=== PATIENT | female | born 1930 | race Caucasian/White ===

== ENCOUNTER 2016-10-14 13:57 | Observation (INO) | payer OTHER ==
--- NOTE | 2016-10-14 14:45 | CPEKG ---
Heart Rate: 64 RR Interval: 938 P-R Interval: 188 QRSD Interval: 122 QT Interval: 432 QTC Interval: 446 P [place]: 62 QRS [place]: -6 T Wave [place]: 19 EKG Severity - ABNORMAL ECG - EKG Impression: SINUS RHYTHM EKG Impression: VENTRICULAR PREMATURE COMPLEX EKG Impression: NONSPECIFIC INTRAVENTRICULAR CONDUCTION DELAY Electronically Signed By: Tony Guzman 15-Oct-2016 23:49:17
--- NOTE | 2016-10-14 15:05 | EDPHY ---
H & P Stated Complaint: 1-2b min episode of aphasia/garbled speech at noon/now resolved Time Seen by Provider: 10/14/16 14:13 HPI/ROS: Chief Complaint: Difficulty with speech and confusion HPI: 86-year-old woman with no significant past medical history presenting after having an episode where she had difficulty word finding and was confused. This started about noon while she was doing yoga in her home. She was with hot health and safety instructor at that time her noted that she was having difficulty word finding and generally feeling confused. She did not have any vertiginous symptoms. Symptoms lasted for a few minutes since resolved. Right now she feels a bit better but "I do not feel like me". Has had milder similar symptoms in the past couple of months. She has had a recent URI the last couple of weeks for which she took a Z-Jeffery. She was seen by her primary care physician last week and had a normal blood test at that time. No falls. No headache. No nausea or vomiting. No chest pain shortness of breath. ROS: 10 point Review of Systems is negative except as noted in the HPI. PMH: Hypothyroidism Medications: Synthroid, oxybutynin, OxyContin Allergies: No known drug allergies Social History: No smoking, rare alcohol, no recreational drug use Family History: non-contributory Physical Exam: Gen: Awake, Alert, No Distress HEENT: Nose: no rhinorrhea Eyes: PERRLA, EOMI Mouth: Moist mucosa Neck: Supple, no JVD Chest: nontender, lungs clear to auscultation Heart: S1, S2 normal, no murmur Abd: Soft, non-tender, no guarding Back: no CVA tenderness, no midline tenderness Ext: no edema, non-tender Skin: no rash Neuro: See NIH stroke exam - Personal History Current Tetanus/Diphtheria Vaccine: Yes - Medical/Surgical History Hx Asthma: No Hx Chronic Respiratory Disease: No Hx Diabetes: No Hx Cardiac Disease: No Hx Renal Disease: No Hx Cirrhosis: No Hx Alcoholism: No Hx HIV/AIDS: No Hx Splenectomy or Spleen Trauma: No Other PMH: denies - Social History Smoking Status: Never smoked Constitutional: Initial Vital Signs Temperature (C) 36.5 C 10/14/16 14:07 Heart Rate 74 10/14/16 14:07 Respiratory Rate 20 10/14/16 14:07 Blood Pressure 165/80 H 04/18/17 14:07 O2 Sat (%) 94 10/14/16 14:07 O2 Delivery Mode Room Air Allergies/Adverse Reactions: No Known Allergies Allergy (Verified 10/14/16 14:06) Home Medications: Medication Instructions Recorded Aspirin [Aspirin 81mg (*)] 81 mg PO DAILY 04/29/12 FLUoxetine HCL [Fluoxetine HCl] 40 mg PO DAILY 04/29/12 Levothyroxine [Synthroid 88 mcg 88 mcg PO DAILY06 04/29/12 (*)] oxyCODONE CR [Oxycontin] 10 mg PO Q6 04/29/12 Oxybutynin 10/14/16 Medical Decision Making - Diagnostics Imaging Results: Imaging Impressions Head CT 10/14/16 14:35 Impression: 1. No acute intracranial findings. If symptoms persist and clinical suspicion warrants, consider MRI. 2. Diffuse cerebral atrophy with periventricular and subcortical low attenuation consistent with chronic microvascular ischemic gliosis. Findings discussed with Rock Mendoza MD, 10/14/2016, at 1512 hours. Imaging: Discussed imaging studies w/ yardage caller Radiologist ED Course/Re-evaluation: Patient remains unchanged. I have discussed with Dr. Islas, hospitalist. He will admit to his service for further evaluation. - Data Points Laboratory Results: Laboratory Results 10/14/16 15:15 10/14/16 15:15 10/14/16 10/14/16 15:15 15:15 WBC 6.37 10^3/uL 10^3/uL (3.80-9.50) RBC 4.60 10^6/uL 10^6/uL (4.18-5.33) Hgb 14.0 g/dL g/dL (12.6-16.3) Hct 42.0 % % (38.0-47.0) MCV 91.3 fL fL (81.5-99.8) MCH 30.4 pg pg (27.9-34.1) MCHC 33.3 g/dL g/dL (32.4-36.7) RDW 14.1 % % (11.5-15.2) Plt Count 250 10^3/uL 10^3/uL (150-400) MPV 10.4 fL fL (8.7-11.7) Neut % (Auto) 61.3 % % (39.3-74.2) Lymph % (Auto) 25.0 % % (15.0-45.0) [place] % (Auto) 11.5 % % (4.5-13.0) Eos % (Auto) 1.4 % % (0.6-7.6) Baso % (Auto) 0.5 % % (0.3-1.7) Nucleat RBC Rel Count 0.0 % % (0.0-0.2) Absolute Neuts (auto) 3.91 10^3/uL 10^3/uL (1.70-6.50) Absolute Lymphs (auto) 1.59 10^3/uL 10^3/uL (1.00-3.00) Absolute Monos (auto) 0.73 10^3/uL 10^3/uL (0.30-0.80) Absolute Eos (auto) 0.09 10^3/uL 10^3/uL (0.03-0.40) Absolute Basos (auto) 0.03 10^3/uL 10^3/uL (0.02-0.10) Absolute Nucleated RBC 0.00 10^3/uL 10^3/uL (0-0.01) Immature Gran % 0.3 % % (0.0-1.1) Immature Gran # 0.02 10^3/uL 10^3/uL (0.00-0.10) Sodium 138 mEq/L mEq/L (134-144) Potassium 4.2 mEq/L mEq/L (3.5-5.2) Chloride 104 mEq/L mEq/L (97-110) Carbon Dioxide 25 mEq/l mEq/l (22-31) Anion Gap 9 mEq/L mEq/L (8-16) BUN 13 mg/dL mg/dL (7-23) Creatinine 0.6 mg/dL mg/dL (0.6-1.0) Estimated GFR > 60 Glucose 91 mg/dL mg/dL (70-100) Calcium 9.6 mg/dL mg/dL (8.5-10.4) Troponin I Pending Departure - Departure Disposition: [facility] Acute Clinical Impression: Transient cerebral ischemia Condition: Fair Referrals: BRITTNEY FABIAN [Other] - As per Instructions NIH Stroke Scale Date of Exam: 10/14/16 Time of Exam: 14:00 Level of Consciousness: Alert LOC Questions: Answers Both LOC Commands: Performs Both Correctly Best Gaze: Normal Visual: No Visual Loss Facial Palsy: Normal Motor Arm-Left: No Drift Motor Arm-Right: No Drift Motor Leg-Left: No Drift Motor Leg-Right: No Drift Limb Ataxis: Absent Sensory: Normal Best Language: No Aphasia Dysarthria: Normal Extinction and Inattention (Neglect): No Abnormality NIH Scale Score: 0
[2016-10-14 15:29] LABS: % IMMATURE GRANULYOCYTES 0.3 % (0.0-1.1); ABSOLUTE IMMATURE GRANULOCYTES 0.02 10^3/uL (0.00-0.10); ADD DIFF? NO; ADD MORPH? NO; ADD SCAN? NO; ATYPICAL LYMPHOCYTE FLAG 10 (0-99); FRAGMENT RBC FLAG 0 (0-99); LEFT SHIFT FLG 0 (0-99); LIPEMIA HEMOLYSIS FLAG 80 (0-99); MEAN CELL HEMOGLOBIN 30.4 pg (27.9-34.1); MEAN CELL HEMOGLOBIN CONCENTR. 33.3 g/dL (32.4-36.7); MEAN CELL VOLUME 91.3 fL (81.5-99.8); MEAN PLATELET VOLUME 10.4 fL (8.7-11.7); PLATELET CLUMPS FLAG 0 (0-99); PLATELET COUNT 250 10^3/uL (150-400); RED CELL DISTRIBUTION WIDTH 14.1 % (11.5-15.2)
[2016-10-14 15:43] LABS: ANION GAP 9 mEq/L (8-16); CALCIUM 9.6 mg/dL (8.5-10.4); CARBON DIOXIDE 25 mEq/l (22-31); CHLORIDE 104 mEq/L (97-110); CREATININE 0.6 mg/dL (0.6-1.0); GLOMERULAR FILTRATION RATE > 60; GLUCOSE 91 mg/dL (70-100); POTASSIUM 4.2 mEq/L (3.5-5.2); SODIUM 138 mEq/L (134-144)
[2016-10-14 15:52] LABS: TROPONIN I < 0.012 ng/mL (0-0.034)
[2016-10-14 16:45] LABS: COLOR YELLOW; LEUKOCYTE ESTERASE,URINE 2+ (NEGATIVE); NITRITE,URINE NEGATIVE (NEGATIVE)
[2016-10-14 16:56] LABS: BACTERIA 4+ /hpf (NONE SEEN); MUCUS TRACE /lpf (NONE-1+); WBC,URINE 15-25 /hpf (0-3)
--- NOTE | 2016-10-14 18:25 | GHP ---
[f rep st] HISTORY AND PHYSICAL DATE OF ADMISSION: 10/14/2016 The patient is a pleasant 86-year-old female with a history of hypothyroidism and former hypertensio n who presents with word-finding difficulties. She was doing yoga at home with an instructor when s he had a hard time getting the words out. She does not describe dysarthria. She does not describe focal weakness. Her son, who is an EMT, showed up a little bit later but it might have been a coupl e hours later and did not notice any asymmetry in her face or difficulty with operator and truck driver strength. She no ticed that she was not listing during her yoga moves to one side versus the other. She now feels th at her speech is almost there but not quite. She is able to name objects and follow commands and re peat phrases. She denies a history of palpitations. She had previously been on blood pressure medi cine in [place] years ago. She denies history of hypercholesterolemia. She has not had heart fa ilure symptoms such as PND, orthopnea or lower extremity edema. She does not have anginal symptoms. She does take 5 mg of OxyContin b.i.d. as well as oxybutynin but it does not sound like there is m edication misuse of inability to take care of one's own medicines. She was recently treated for an upper respiratory infection with a Z-Jeffery. It sounds like her daught er has been visiting. It has been an emotionally trying time, but the patient seems pretty alert an d level headed when I am speaking with her. REVIEW OF SYSTEMS: A complete 10-point review of systems conducted and negative except as noted in the HPI. PAST MEDICAL HISTORY: 1. Chronic pain although her son describes that she is treated with opioids for sense of well-being . 2. Hypothyroidism. 3. Possible hypertension. 4. Urinary urgency. ALLERGIES: No known drug allergies. HOME MEDICATIONS: Aspirin, fluoxetine, levothyroxine, oxybutynin, oxycodone. SOCIAL HISTORY: No tobacco. No alcohol. FAMILY HISTORY: Son is healthy at the bedside. PHYSICAL EXAMINATION: VITAL SIGNS: Temp 36.5, blood pressure 165/80, pulse 74, breathing 20 times a minute, 94% on room air. GENERAL: No acute distress. HEENT: Sclerae anicteric. Oropharynx cintia ar. Mucous membranes are moist. NECK: Supple without lymphadenopathy or JVD. LUNGS: Clear to au scultation bilaterally. HEART: S1, S2 without murmurs. ABDOMEN: Soft, nontender, nondistended. LOWER EXTREMITIES: Without edema. Calves are nontender. SKIN: Without rash. NEUROLOGIC: Nonfoc al. The upper extremity and lower extremity strength and sensation are 5/5 bilaterally. She is abl e to name objects, follow commands and repeat a phrase without dysarthria or word-finding difficulti es. IMAGING: Head CT shows no acute intracranial findings, diffuse cerebral atrophy consist with chroni c microvascular ischemic gliosis. Her EKG interpreted by me shows sinus at 67 with normal axis and intervals. There are no ST or T-wave changes. There are nonspecific interventricular conduction de lay. There is no prior for comparison. I have discussed the case with Dr. Rock Mendoza. LABORATORY DATA: White count 6, hematocrit 42, platelets are 203,000. Sodium 138, potassium 4.2, c hloride 104, bicarb 25, BUN 13, creatinine 0.6, glucose 91, troponin less than 0.012. UA as mention ed. ASSESSMENT/PLAN: An 86-year-old female with likely transient ischemic attack. 1. Transient ischemic attack. This sounds like it was an expressive aphasia that was transient wit h those symptoms alone. Symptoms by my exam had fully cleared. She is not a candidate for lytics. We will perform the typical transient ischemic attack workup including an echocardiogram, ultrasoun ds, hemoglobin A1c and lipid panel. I do not think she needs an MRI if family is not interested in getting one. 2. Pyuria. The patient has a UA showing 15-25 white cells. She has no urinary symptoms. We will treat it. Also has 2+ epithelial cells consistent with contaminant. 3. Prophylaxis. Pharmacologic prophylaxis indicated if in the hospital longer than 24 hours. 4. Possible hypertension. She is hypertensive here. We will follow. We will not give any agents at this time. 5. Disposition: Observation status. /[id number]/MODL
[2016-10-14] MEDS ORDERED: NAPROXEN SODIUM 220 MG TAB PO PRN (18:40)
[2016-10-14] MEDS: OXYBUTYNIN 5 MG EXT REL TAB PO SCH (20:40)
[2016-10-14] MEDS: oxyCODONE IR 5 MG TAB PO SCH (20:40)
[2016-10-15 00:45] VITALS: RESP 16
[2016-10-15 05:05] LABS: CHOLESTEROL 167 mg/dL (140-220); CHOLESTEROL/HDL RATIO 2.69 RATIO (1.00-4.44); HIGH DENSITY LIPOPROTEIN 62 mg/dL (40-85); LDL/HDL RATIO 1.42 RATIO (1.00-3.22); LOW DENSITY LIPOPROTEIN 88 mg/dL (80-100); NON-HIGH DENSITY LIPOPROTEIN 105 mg/dL (90-129); TRIGLYCERIDE 85 mg/dL (35-135); VERY LOW DENSITY LIPOPROTEINS 17 mg/dL (8-25)
[2016-10-15] MEDS ORDERED: LEVOTHYROXINE 88 MCG TAB PO SCH (06:00)
[2016-10-15] MEDS ORDERED: NON-FORMULARY NEW DRUG (Oxybutynin Chloride [Ditropan Xl] 10 MG) PO SCH (09:00)
[2016-10-15] MEDS ORDERED: ASPIRIN 81 MG CHEWABLE TAB PO SCH (09:00)
[2016-10-15] MEDS ORDERED: Herbals/Supplements -Info Only PO SCH (09:00)
[2016-10-15] MEDS: OXYBUTYNIN 5 MG EXT REL TAB PO SCH (09:51)
[2016-10-15 09:53] LABS: HEMOGLOBIN A1C 5.5 % (4.0-6.0)
[2016-10-15] MEDS: oxyCODONE IR 5 MG TAB PO SCH (09:53)
--- NOTE | 2016-10-15 11:57 | HOSPPROG ---
Hospitalist Progress Note Assessment/Plan: Patient is an 86 yo female who presented to the ER with word finding difficulties. Today is my first encounter with the patient, chart reviewed. *likely TIA carotid ultrasound shows < 50 % stenosis CT of head shows no acute intracranial findings ECG shows sinus rhythm/reviewed cardiac monitor: sinus rhythm awaiting echo report on asa, would benefit from a statin/ patient and her son wish to discuss w her PCP *Pyuria no complaints *Urinary urgency on Oxybutynin *HTN; bp has been elevated, son and patient want to further discuss w PCP *Plan: Dr Unger with neurology to see/ will likely dc today Subjective: Glenna feels well/ no complaints. Objective: Vital Signs Temp Pulse Resp BP Pulse Ox 36.4 C 61 16 169/67 H 94 10/15/16 11:44 10/15/16 11:44 10/15/16 11:44 10/15/16 11:44 10/15/16 11:44 10/14/16 10/15/16 10/16/16 05:59 05:59 05:59 Intake Total 400 Balance 400 - Physical Exam Constitutional: no apparent distress, appears nourished, not in pain Eyes: PERRL Ears, Nose, Mouth, Throat: hearing normal Cardiovascular: regular rate and rhythym Respiratory: no respiratory distress Gastrointestinal: normoactive bowel sounds, soft, non-tender abdomen Skin: warm, normal color Musculoskeletal: full muscle strength Neurologic: AAOx3, CN II-XII Intact, No pronator drift, No facial droop Psychiatric: interacting appropriately, not anxious, not encephalopathic ICD10 Worksheet Patient Problems: Problems Problem Status Onset Transient cerebral ischemia Acute
--- NOTE | 2016-10-15 14:19 | ECHO ---
[id number] + + [address] : : [place] [address] : : [phone] + + Adult Echocardiographic Report + -----+ :Name: Zeb HODGE Date: 10/15/2016 08:28 AM : : Hospital Admission Number: [id number] Location : 340: :: 1930 Gender: Female Height: 66 in : :Age: 86 yrs Race: WH Weight: 164 lb : :Reason For Study: Eval LV Fx : : BSA: 1.8 meters2 : :History: TIA : + -----+ MMode/2D Measurements \T\ Calculations IVSd: 1.0 cm LVIDd: 3.9 cm FS: 42.6 % Ao root diam: 3.0 cm LVPWd: 1.0 cm LVIDs: 2.3 cm EDV(Teich): 67.3 ml ACS: 1.5 cm ESV(Teich): 17.3 ml EF(Teich): 74.3 % LVOT diam: 1.9 cm LVOT area: 2.8 cm2 Normal Measurement Values: + + :LVIDd (3.5-5.7cm) IVSd (0.6-1.1cm) LVPWd (0.6-1.1cm) Aortic Root (2.0-3.7cm)Left Atrium (1.5-4.0cm): :LV Vol(d) (76-115ml) LV Vol(s) (29-48ml) Ejec Fraction (50-65%)PV Isaías (0.6- 1.2m/s) TV Isaías (0.4-1.0m/s) : :MV E Isaías (0.8-1.0m/s)MV A Isaías (0.3-1.0m/s)LVOT Isaías (0.7-1.2m/s) Asc Ao Isaías ( 0.9-1.8m/s) : + + Doppler Measurements \T\ Calculations MV E max isaías: Ao mean PG: AI max isaías: LV V1 max: 75.0 cm/sec 7.6 mmHg 446.4 cm/sec 102.7 cm/sec MV A max isaías: Ao V2 mean: AI max P.7 mmHgLV V1 max P.6 cm/sec 127.3 cm/sec AI dec slope: 4.2 mmHg MV E/A: 0.68 Ao V2 VTI: 36.3 cm LV V1 mean P.9 cm/sec2 2.2 mmHg OLEGARIO(I,D): 1.9 cm2 AI P1/2t: 726.8 msecLV V1 mean: 68.3 cm/sec LV V1 VTI: 24.5 cm SV(LVOT): 69.5 ml PA V2 max: TR max isaías: 90.9 cm/sec 314.9 cm/sec PA max PG: TR max P.7 mmHg 3.3 mmHg RAP systole: 5.0 mmHg RVSP(TR): 44.7 mmHg Left Ventricle The left ventricle is normal in size. There is normal left ventricular wall thickness. The left ventricular ejection fraction is normal. Ejection Fraction = 75%. There is Doppler evidence for diastolic dysfunction. The left ventricular wall motion is normal. Right Ventricle The right ventricle is normal in size and function. Atria The left atrium is mildly dilated. Right atrial size is normal. Mitral Valve The mitral valve is normal in structure and function. There is no mitral valve stenosis. There is trace mitral regurgitation. Tricuspid Valve There is mild tricuspid regurgitation. Right ventricular systolic pressure is 45mmHg. There is Doppler evidence for mild pulmonary hypertension. Aortic Valve There is mild aortic valve calcification. There is no aortic stenosis. Mild aortic regurgitation. Pulmonic Valve The pulmonic valve is normal in structure and function. Trace pulmonic valvular regurgitation. Great Vessels The aortic root is normal size. Pericardium/Pleural There is no pericardial effusion. Conclusion A complete two-dimensional transthoracic echocardiogram was performed (2D, M-mode, Doppler and color flow Doppler). The left ventricular ejection fraction is normal. Ejection Fraction = 75%. There is Doppler evidence for diastolic dysfunction. The left ventricular wall motion is normal. The left atrium is mildly dilated. The mitral valve is normal in structure and function. Mild MAC. There is trace mitral regurgitation. There is mild tricuspid regurgitation. Right ventricular systolic pressure is 45mmHg. There is Doppler evidence for mild pulmonary hypertension. Mild aortic regurgitation. Trace pulmonic valvular regurgitation. There is no pericardial effusion. There is mild aortic valve calcification. There are no valvular vegetations. Interatrial septum is intact on color flow and 2D imaging. No obvious cardiac source for embolism. Consider HOLLAND and/or agitated saline contrast study if there is a high index of suspicion. Final Reading Physician: Cristofer Burr signed on 10/15/2016 02:17 PM Ordering Physician: Star Islas Performed By: Patrice Chaves, CS
[2016-10-15 15:50] VITALS: BP 155/89; PULSE 65; TEMP 97.7; O2SAT 93
--- NOTE | 2016-10-15 15:59 | GCON ---
[f rep st] CONSULTATION REFERRING PHYSICIAN: Star Islas MD CHIEF COMPLAINT: Transient ischemic attack. PHYSICIAN BILLING INFORMATION: 50 total minutes floor time today; over 50% in counseling the patient and her son and coordination of care along with reviewing records. HISTORY OF PRESENT ILLNESS: Ms. Arce is a very pleasant 86-year-old lady with a past medical history that includes hypothyroidism and possible hypertension. 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 She knew what she wanted to say, but had trouble getting the words out, and it came out "garbled." She did not have word substitutions but substitutions of parts of words. The symptoms lasted for 30 minutes and spontaneously resolved. There were no sensory motor symptoms. No vision symptoms. It was isolated expressive language symptoms. No comprehension problems. By the time her son arrived, he examined her, and there was no deficits that he noticed. He is an EMT. They brought her to the Emergency Department for a TIA evaluation. She had been recently sick with a URI treated with Z-Jeffery. She is on opiates for chronic pain but had not taken extra medication recently. REVIEW OF SYSTEMS: Ten-point review of systems was done and only pertinent in HPI. PAST MEDICAL HISTORY: Question of hypertension, hypothyroidism, chronic pain. ALLERGIES: No known drug allergies. HOME MEDICATIONS: Fluoxetine, levothyroxine, oxybutynin and oxycodone. She does not take a daily aspirin according to the patient and her son. She had taken daily aspirin years ago. SOCIAL HISTORY: No tobacco or alcohol. for many years. FAMILY HISTORY: No heritable neurologic disease. PHYSICAL EXAM: VITAL SIGNS: Blood pressure 141/73, heart rate 62, temperature 36.2. GENERAL: No acute distress. Very pleasant. HIGHER MENTAL FUNCTION: Names 5/5. Follows commands 5. Repeats 5/5. No aphasia. CRANIAL NERVE EXAM: Normal 2-7, 11, and 12. Motor: Normal strength and deep tendon reflexes. Sensory: Normal to light touch in all 4 extremities. Coordination normal in upper and lower extremities. IMPRESSION AND PLAN: 1. Probable transient ischemic attack. Overall, the patient's clinical history is suggestive of a left hemisphere transient ischemic attack, affecting isolated expressive language function only. The symptoms spontaneously resolved after 30 minutes, therefore not a candidate for lytics. She has had no atrial fibrillation so far, on ECG telemetry. The initial head CT without contrast shows no acute findings. The event occurred while she was not on an antiplatelet. She has not taken daily baby aspirin for years. Carotid ultrasound showed no significant obstruction. Echocardiogram showed 75% ejection fraction and mild dilation of the left atrium. RECOMMENDATIONS: I recommend she go on a daily aspirin, 325 mg coated with meals. We discussed potential risks, benefits, and alternatives of aspirin therapy. I also recommend she follow up with her PCP and consider statin therapy along with monitoring her blood pressure and to have any elevated blood pressure. Treat with antihypertensives if persistent hypertension. She and her son will consider this and follow up with her PCP and consider both of these suggestions. Lastly, because of the mild dilation of the left atrium, I have recommended a 30-day event monitor to screen for any paroxysmal atrial fibrillation. They are agreeable. They will follow up with [facility] for this. No further recommendations. They will likely discharge home later today. Thank you for this consultation. /[id number]/MODL MTDD
--- NOTE | 2016-10-15 16:04 | GDS ---
[f rep st] DISCHARGE SUMMARY DISCHARGE DIAGNOSES: 1. Transient ischemic attack. 2. Pyuria. 3. Urinary urgency. 4. Hypertension. CONSULTATIONS DURING HER STAY: Dr. Brendan Unger. HOSPITAL COURSE: Briefly, the patient is an 86-year-old female, who presented to the emergency room with word-finding difficulties. During her stay, she had a carotid Doppler study performed, which showed mild atherosclerotic disease in her bilateral carotid bulbs, with tortuous bilateral internal carotid arteries. She has less than 50% stenosis in the right and left internal carotid arteries. In addition, she had a CT of the head that showed nothing acute. An echocardiogram was performed, which showed Doppler evidence for mild pulmonary hypertension. Her right systolic pressure is 45 mmHg. Her left atrium is mildly dilated. Her EF is 75%. She has evidence for diastolic dysfunction. She was seen and evaluated by Dr. Unger. The plan is for her to get an outpatient Holter monitor, and follow up with Cardiology. Also, recommending that she take a full-strength aspirin daily. HOSPITAL COURSE PER PROBLEM: 1. Transient ischemic attack. I spoke with her son about statin therapy. They want to discuss this with the primary care provider. On the bus driver/monitor, she has been in sinus rhythm. No atrial fibrillation has been noted. 2. Pyuria. No complaints. 3. Urinary urgency. On medication for this. 4. Hypertension. Blood pressure has been elevated overall throughout her stay. The son and the patient would like to talk with her primary care provider. PENDING LABS AND TESTS: None. CONDITION AT DISCHARGE: Stable. Blood pressure is 169/67, heart rate is 61, respiratory rate is 16, O2 sats on room air 94%, temperature is 36.4 Celsius. MEDICATIONS AT DISCHARGE: Please see the EMR. DISCHARGE INSTRUCTIONS: 1. Recommended that she call [facility] and make an appointment for followup care, and get a Holter monitor. 2. Take a full-strength aspirin daily. 3. She has slightly elevated LDL. Consider statin treatment. 4. Hypertension. Recommend treatment for this. In addition, she also has some mild pulmonary hypertension. She would benefit from an outpatient sleep study. 5. To get a 30-day Holter monitor, and follow up [facility]. /[id number]/MODL MTDD
[2016-10-20] MEDS ORDERED: ERGOCALCIFEROL 50,000 I.UNIT CAP PO SCH ×2 (08:00)
== END 2016-10-15 16:27 | disposition home or self-care (01) ==
LOC: INTOOBSV 15:40 → F3N 17:41
PROVIDERS: ADMIT Internal Medicine; ATTEND Family Medicine
DX: G45.9 Transient cerebral ischemic attack, unspecified (principal); I10 Essential (primary) hypertension; E03.9 Hypothyroidism, unspecified; N39.0 Urinary tract infection, site not specified; R39.15 Urgency of urination
CPT/HCPCS: 70450; 92523; 93005; 93306; 93880; 97161; 97165; 99285; G0378; G8978; G8979; G8980; G8987; G8988; G9162; G9163; G9164

== ENCOUNTER 2018-03-14 15:22 | Inpatient (IN) | payer OTHER ==
--- NOTE | 2018-03-14 15:30 | EDPHY ---
HPI/HX/ROS/PE/MDM Narrative: CHIEF COMPLAINT: Fall, back pain HPI: The patient is an 81 y/o female arriving via EMS as a LTA complaining of back pain after a fall while getting out of bed this morning. She does not believe she struck her head "hard," though is unable to provide much detail about the fall. She reports her baseline chronic back pain feels about the same after the fall. She says she was "goofy all day" and "less aware of what I was doing and where I was at and I just didn't feel well." She does have a mild headache. No weakness or paresthesias. She does use oxycodone for her back pain. It's unclear if this is self-administered or not. She says "my back is not comfortable, but that's because I'm sitting funny." REVIEW OF SYSTEMS: A comprehensive 10 system review of systems is otherwise negative aside from elements mentioned in the history of present illness. PMH: Chronic back pain SOCIAL HISTORY: Lives at [facility]. . PHYSICAL EXAM: General:Patient is alert, in no acute distress. ENT:Eyes are normal to inspection. ENT inspection normal. Neck: Normal inspection. Full range of motion. Respiratory:No respiratory distress. Breath sounds normal bilaterally. Cardiovascular: Regular rate and rhythm. Strong peripheral pulses. Normal cap refill. Abdomen:The abdomen is nontender to palpation. There are no peritoneal signs. Back: Normal to inspection. No tenderness to palpation. Skin: Normal color. No rash. Warm and dry. Extremities: Mild contusion right knee, otherwise normal appearance. Full range of motion. Neuro: Oriented x3. Normal motor function. Normal sensory function. ED Course: 87 y/o female presents after a fall from bed this morning with baseline back pain and stating she feels "goofy." No visible trauma apart from very mild contusion on right knee. She is neurovascularly intact. LTA downgraded upon arrival as patient does not meet criteria for this. Plan for IV, labs, UA, head CT. Head CT: negative. Troponin elevated 0.14. The 12 lead EKG was interpreted by myself. See hard copy and/or "tracemaster" electronic copy for interpretation. Second troponin elevated 0.17. Recommended admission, which she and her family now at bedside agree to. Spoke with hospitalist service. Dr. Doherty accepts admission. - Data Points Imaging Results: Imaging Impressions Head CT 03/14/18 15:30 Impression: 1. Moderate atrophy. 2. No hemorrhage, mass effect, or definite acute peripheral infarct. 3. Extensive nonspecific hypodensities in the white matter of bilateral cerebral hemispheres. Differential diagnosis includes microvascular ischemic disease, post-infectious/post-inflammatory sequela, atypical demyelinating disease, or migraine-related sequela. Small white matter lacunar infarcts may also have this appearance. If symptoms worsen, additional imaging may be necessary. Findings discussed with Juan C Orellana MD at 16:00 hour, 03/14/2018. Imaging: Discussed imaging studies w/ house calls nurse practitioner Radiologist, I viewed and interpreted images myself Laboratory Results: Laboratory Results 03/14/18 15:20 03/14/18 15:20 03/14/18 03/14/18 03/14/18 17:42 16:25 15:44 WBC RBC Hgb Hct MCV MCH MCHC RDW Plt Count MPV Neut % (Auto) Lymph % (Auto) [place] % (Auto) Eos % (Auto) Baso % (Auto) Nucleat RBC Rel Count Absolute Neuts (auto) Absolute Lymphs (auto) Absolute Monos (auto) Absolute Eos (auto) Absolute Basos (auto) Absolute Nucleated RBC Immature Gran % Immature Gran # PT INR APTT Sodium Potassium Chloride Carbon Dioxide Anion Gap BUN Creatinine Estimated GFR Glucose Calcium POC Troponin I 0.17 ng/mL H ng/mL 0.14 ng/mL H ng/mL (0.00-0.08) (0.00-0.08) Urine Color YELLOW Urine Appearance HAZY Urine pH 5.0 (5.0-7.5) Ur Specific [place] 1.019 (1.002-1.030) Urine Protein NEGATIVE (NEGATIVE) Urine Ketones 1+ H (NEGATIVE) Urine Blood NEGATIVE (NEGATIVE) Urine Nitrate POSITIVE H (NEGATIVE) Urine Bilirubin NEGATIVE (NEGATIVE) Urine Urobilinogen NEGATIVE EU EU (0.2-1.0) Ur Leukocyte Esterase NEGATIVE (NEGATIVE) Urine RBC 1-3 /hpf /hpf (0-3) Urine WBC 3-5 /hpf H /hpf (0-3) Ur Epithelial Cells TRACE /lpf /lpf (NONE-1+) Urine Bacteria 3+ /hpf H /hpf (NONE SEEN) Urine Mucus 2+ /lpf H /lpf (NONE-1+) Urine Glucose NEGATIVE (NEGATIVE) 03/14/18 03/14/18 03/14/18 15:20 15:20 15:20 WBC 10.34 10^3/uL H 10^3/uL (3.80-9.50) RBC 4.84 10^6/uL 10^6/uL (4.18-5.33) Hgb 14.6 g/dL g/dL (12.6-16.3) Hct 43.7 % % (38.0-47.0) MCV 90.3 fL fL (81.5-99.8) MCH 30.2 pg pg (27.9-34.1) MCHC 33.4 g/dL g/dL (32.4-36.7) RDW 13.3 % % (11.5-15.2) Plt Count 242 10^3/uL 10^3/uL (150-400) MPV 10.7 fL fL (8.7-11.7) Neut % (Auto) 79.3 % H % (39.3-74.2) Lymph % (Auto) 10.3 % L % (15.0-45.0) [place] % (Auto) 9.8 % % (4.5-13.0) Eos % (Auto) 0.1 % L % (0.6-7.6) Baso % (Auto) 0.2 % L % (0.3-1.7) Nucleat RBC Rel Count 0.0 % % (0.0-0.2) Absolute Neuts (auto) 8.20 10^3/uL H 10^3/uL (1.70-6.50) Absolute Lymphs (auto) 1.07 10^3/uL 10^3/uL (1.00-3.00) Absolute Monos (auto) 1.01 10^3/uL H 10^3/uL (0.30-0.80) Absolute Eos (auto) 0.01 10^3/uL L 10^3/uL (0.03-0.40) Absolute Basos (auto) 0.02 10^3/uL 10^3/uL (0.02-0.10) Absolute Nucleated RBC 0.00 10^3/uL 10^3/uL (0-0.01) Immature Gran % 0.3 % % (0.0-1.1) Immature Gran # 0.03 10^3/uL 10^3/uL (0.00-0.10) PT 12.7 SEC SEC (12.0-15.0) INR 0.93 (0.83-1.16) APTT 28.7 SEC SEC (23.0-38.0) Sodium 140 mEq/L mEq/L (135-145) Potassium 4.1 mEq/L mEq/L (3.3-5.0) Chloride 105 mEq/L mEq/L (97-110) Carbon Dioxide 22 mEq/l mEq/l (22-31) Anion Gap 13 mEq/L mEq/L (8-16) BUN 15 mg/dL mg/dL (7-23) Creatinine 0.5 mg/dL L mg/dL (0.6-1.0) Estimated GFR > 60 Glucose 113 mg/dL H mg/dL (70-100) Calcium 9.8 mg/dL mg/dL (8.5-10.4) POC Troponin I Urine Color Urine Appearance Urine pH Ur Specific [place] Urine Protein Urine Ketones Urine Blood Urine Nitrate Urine Bilirubin Urine Urobilinogen Ur Leukocyte Esterase Urine RBC Urine WBC Ur Epithelial Cells Urine Bacteria Urine Mucus Urine Glucose Point of Care Test Results: Chemistry 03/14/18 03/14/18 17:42 15:44 POC Troponin I 0.17 ng/mL H ng/mL 0.14 ng/mL H ng/mL (0.00-0.08) (0.00-0.08) General Time Seen by Provider: 03/14/18 15:25 Initial Vital Signs: Initial Vital Signs Temperature (C) 36.5 C 03/14/18 15:37 Heart Rate 83 03/14/18 15:37 Respiratory Rate 14 03/14/18 15:37 Blood Pressure 139/74 H 03/14/18 15:37 O2 Sat (%) 96 03/14/18 15:37 O2 Delivery Mode Room Air Allergies/Adverse Reactions: No Known Allergies Allergy (Verified 10/14/16 14:06) Home Medications: Medication Instructions Recorded Levothyroxine [Synthroid 88 mcg 88 mcg PO DAILY06 04/29/12 (*)] Ergocalciferol [Vitamin D2 (*)] 50,000 unit PO MO@0800 10/14/16 Herbals/Supplements -Info Only 1 ea PO DAILY 10/14/16 Naproxen Sodium [Aleve 220 MG (*)] 220 mg PO DAILY PRN 10/14/16 Oxybutynin Chloride [Ditropan Xl] 10 mg PO DAILY 10/14/16 oxyCODONE IR [Oxycodone Ir (*)] 5 mg PO BID 10/14/16 Aspirin [Aspirin 325 mg (*)] 325 mg PO DAILY #0 tab 10/15/16 Departure - Departure Disposition: [facility] Inpatient Acute Clinical Impression: Elevated troponin Fall Qualifiers: Encounter type: initial encounter Qualified Code(s): W19.XXXA - Unspecified fall, initial encounter Back pain Qualifiers: Back pain location: low back pain Chronicity: chronic Back pain laterality: unspecified Sciatica presence: without sciatica Qualified Code(s): M54.5 - Low back pain Condition: Fair Referrals: Patient,NotPresent [Unknown] - As per Instructions Report Scribed for: Juan C Orellana Report Scribed by: Laxmi King Date of Report: 03/14/18 Time of Report: 15:30 Physician Review and Approval Statement: Portions of this note were transcribed by an ED scribe. I personally performed the history, physical exam, and medical decision making; and confirm the accuracy of the information in the transcribed note.
[2018-03-14 15:39] LABS: PLATELET COUNT 242 10^3/uL (150-400)
[2018-03-14 16:00] LABS: INR 0.93 (0.83-1.16); PROTIME(PATIENT) 12.7 SEC (12.0-15.0)
[2018-03-14] MEDS ORDERED: ONDANSETRON DISINTEGRATING 4 MG TAB PO PRN (18:34)
[2018-03-14] MEDS ORDERED: ONDANSETRON 4 MG/2 ML VIAL IVP PRN (18:34)
--- NOTE | 2018-03-14 19:45 | PDGENHP ---
History and Physical - Chief Complaint Acute fall - History of Present Illness Primary care provider: Marychuy BANSAL HPI: 87-year-old female presenting with acute fall characterized as losing her balance while ambulating out of bed on the morning of presentation with inability to stand up thereafter. Patient remained on the floor throughout the majority of the day before receiving medical attention. She reports that she lacked the strength to stand up. She reports no trauma to any body part, but does report some mild pain located in her back after she was transported to the hospital. Her granddaughter reports that there is associated "fogginess", which has been intermittently present throughout the past couple weeks. Approximately 1 month ago, the patient experienced visual hallucinations which were self limited but fairly pervasive. As a result, the family discontinued her oxybutynin, with resolution of the hallucinations but no improvement in her "fogginess". Since discontinuing the oxybutynin, the patient has noted an increase in urinary incontinence but no overt dysuria or fevers. She has continued to take her home oxycodone immediate release as prescribed, twice daily. On the day prior to presentation, the patient was otherwise feeling normal. History Information - Allergies/Home Medication List Allergies/Adverse Reactions: No Known Allergies Allergy (Verified 10/14/16 14:06) Home Medications: Levothyroxine [Synthroid 88 mcg (*)] 88 mcg PO DAILY06 04/29/12 [Last Taken ] Ergocalciferol [Vitamin D2 (*)] 50,000 unit PO TU@0800 10/14/16 [Last Taken 05/16] Herbals/Supplements -Info Only 1 ea PO DAILY 10/14/16 [Last Taken Unknown] Naproxen Sodium [Aleve 220 MG (*)] 220 mg PO DAILY PRN 10/14/16 [Last Taken ] oxyCODONE IR [Oxycodone Ir (*)] 5 mg PO BID 10/14/16 [Last Taken 03/13/18] Homeopathic Eye Drops 1 drop EACHEYE DAILY 03/14/18 [Last Taken 03/13/18] I have personally reviewed and updated: family history, medical history, social history, surgical history - Past Medical History hypertension, TIA (September 2016 with word-finding difficulty) Additional medical history: Mild to moderate carotid stenosis bilaterally. Hypothyroidism. Urinary urgency. Chronic pain with continuous opiate dependency and mechanical fall in 2012. Mild pulmonary hypertension - Surgical History Reports: no pertinent surgical hx - Family History Additional family history: No family neuro degenerative disorders - Social History Smoking Status: Never smoked Alcohol Use: Rarely Drug Use: None Additional social history: Lives at [facility] Review of Systems Review of Systems: ROS: 10pt was reviewed & negative except for what was stated in HPI & below Constitutional: Reports: weakness Genitourinary: Reports: urgency Neurological: Reports: other (Fogginess) Physical Exam Physical Exam: Temp Pulse Resp BP Pulse Ox 36.5 C 79 16 142/74 H 98 03/14/18 15:37 03/14/18 18:00 03/14/18 18:00 03/14/18 18:00 03/14/18 18:00 Constitutional: no apparent distress, appears nourished, not in pain Eyes: PERRL, anicteric sclera, EOMI Ears, Nose, Mouth, Throat: moist mucous membranes, hearing normal, ears appear normal, no oral mucosal ulcers Cardiovascular: regular rate and rhythym, no murmur, rub, or gallop, No edema Respiratory: no respiratory distress, no rales or rhonchi, clear to auscultation Gastrointestinal: normoactive bowel sounds, soft, non-tender abdomen, no palpable masses Genitourinary: no bladder fullness, no bladder tenderness Skin: other (Mild abrasion over lateral left shoulder without any induration, mild excoriation right inguinal fold without induration) Musculoskeletal: other (Full range of motion bilateral shoulders without any pain elicited) Neurologic: AAOx3, sensation intact bilaterally, CN II-XII Intact, No weakness ( Motor strength 5/5 bilateral upper and lower extremities) Psychiatric: interacting appropriately, not anxious, not encephalopathic, thought process linear, other (Concentration 7/7, naming 2/3) Lab Data & Imaging Review 03/14/18 15:20 03/14/18 15:20 WBC 10.34 10^3/uL (3.80-9.50) H 03/14/18 15:20 RBC 4.84 10^6/uL (4.18-5.33) 03/14/18 15:20 Hgb 14.6 g/dL (12.6-16.3) 03/14/18 15:20 Hct 43.7 % (38.0-47.0) 03/14/18 15:20 MCV 90.3 fL (81.5-99.8) 03/14/18 15:20 MCH 30.2 pg (27.9-34.1) 03/14/18 15:20 MCHC 33.4 g/dL (32.4-36.7) 03/14/18 15:20 RDW 13.3 % (11.5-15.2) 03/14/18 15:20 Plt Count 242 10^3/uL (150-400) 03/14/18 15:20 MPV 10.7 fL (8.7-11.7) 03/14/18 15:20 Neut % (Auto) 79.3 % (39.3-74.2) H 03/14/18 15:20 Lymph % (Auto) 10.3 % (15.0-45.0) L 03/14/18 15:20 [place] % (Auto) 9.8 % (4.5-13.0) 03/14/18 15:20 Eos % (Auto) 0.1 % (0.6-7.6) L 03/14/18 15:20 Baso % (Auto) 0.2 % (0.3-1.7) L 03/14/18 15:20 Nucleat RBC Rel Count 0.0 % (0.0-0.2) 03/14/18 15:20 Absolute Neuts (auto) 8.20 10^3/uL (1.70-6.50) H 03/14/18 15:20 Absolute Lymphs (auto) 1.07 10^3/uL (1.00-3.00) 03/14/18 15:20 Absolute Monos (auto) 1.01 10^3/uL (0.30-0.80) H 03/14/18 15:20 Absolute Eos (auto) 0.01 10^3/uL (0.03-0.40) L 03/14/18 15:20 Absolute Basos (auto) 0.02 10^3/uL (0.02-0.10) 03/14/18 15:20 Absolute Nucleated RBC 0.00 10^3/uL (0-0.01) 03/14/18 15:20 Immature Gran % 0.3 % (0.0-1.1) 03/14/18 15:20 Immature Gran # 0.03 10^3/uL (0.00-0.10) 03/14/18 15:20 PT 12.7 SEC (12.0-15.0) 03/14/18 15:20 INR 0.93 (0.83-1.16) 03/14/18 15:20 APTT 28.7 SEC (23.0-38.0) 03/14/18 15:20 Sodium 140 mEq/L (135-145) 03/14/18 15:20 Potassium 4.1 mEq/L (3.3-5.0) 03/14/18 15:20 Chloride 105 mEq/L (97-110) 03/14/18 15:20 Carbon Dioxide 22 mEq/l (22-31) 03/14/18 15:20 Anion Gap 13 mEq/L (8-16) 03/14/18 15:20 BUN 15 mg/dL (7-23) 03/14/18 15:20 Creatinine 0.5 mg/dL (0.6-1.0) L 03/14/18 15:20 Estimated GFR > 60 03/14/18 15:20 Glucose 113 mg/dL (70-100) H 03/14/18 15:20 Calcium 9.8 mg/dL (8.5-10.4) 03/14/18 15:20 POC Troponin I 0.17 ng/mL (0.00-0.08) H 03/14/18 17:42 Urine Color YELLOW 03/14/18 16:25 Urine Appearance HAZY 03/14/18 16:25 Urine pH 5.0 (5.0-7.5) 03/14/18 16:25 Ur Specific [place] 1.019 (1.002-1.030) 03/14/18 16:25 Urine Protein NEGATIVE (NEGATIVE) 03/14/18 16:25 Urine Ketones 1+ (NEGATIVE) H 03/14/18 16:25 Urine Blood NEGATIVE (NEGATIVE) 03/14/18 16:25 Urine Nitrate POSITIVE (NEGATIVE) H 03/14/18 16:25 Urine Bilirubin NEGATIVE (NEGATIVE) 03/14/18 16:25 Urine Urobilinogen NEGATIVE EU (0.2-1.0) 03/14/18 16:25 Ur Leukocyte Esterase NEGATIVE (NEGATIVE) 03/14/18 16:25 Urine RBC 1-3 /hpf (0-3) 03/14/18 16:25 Urine WBC 3-5 /hpf (0-3) H 03/14/18 16:25 Ur Epithelial Cells TRACE /lpf (NONE-1+) 03/14/18 16:25 Urine Bacteria 3+ /hpf (NONE SEEN) H 03/14/18 16:25 Urine Mucus 2+ /lpf (NONE-1+) H 03/14/18 16:25 Ur Culture Indicated? INDICATED (NI) H 03/14/18 16:25 Urine Glucose NEGATIVE (NEGATIVE) 03/14/18 16:25 Visualized and Interpreted EKG results: Yes EKG Interpretation: Positive for: normal sinsus rhythm (PVC, Q-wave in lead V2) Assessment & Plan Assessment: 87-year-old female presents with acute fall, possible urinary tract infection Plan: 1. Fall. Acute, new problem this provider, further workup indicated. Unclear whether this was secondary to purely frailty and generalized weakness versus underlying infection, doubt primary acute coronary syndrome but demand ischemia from her fall is certainly possible -suspect the patient has an underlying level of chronic encephalopathy and I would recommend that she have outpatient neurology follow-up after this hospital stay (reviewed outside records including 10/15/2016 discharge summary by Debbie Mojica, reported patient had a TIA with word-finding difficulty, mild atherosclerosis in her bilateral carotids, I suspect that she may have an element of mild vascular dementia versus mild cognitive impairment) -get cog, PT and OT assessments -check CPK to rule out rhabdo -check respiratory viral panel to rule out viral precipitant -if she localizes any particular pain, get radiographic trauma evaluation 2. Possible urinary tract infection. Evidenced by leukocytosis, positive urinalysis, some acute cognitive changes -I think that her previous episode of visual hallucinations is unrelated, as this would have involved into a septic UTI if it had gone untreated for 1 month -get urine culture -give 1 dose of IV ceftriaxone, reassess cognitive and physical function in a.m. 3. Acute demand ischemia. Positive troponin, no ischemic changes on EKG, monitor on telemetry overnight repeat troponin level this evening -continue full-dose aspirin -check lipid panel -has no known history of obstructive coronary disease, consider outpatient cardiac risk stratification following resolution of above 4. Hypertension. Chronic, continue home medication Diet. Regular Prophylaxis. High risk patient, Lovenox 40 Code. Do not resuscitate per patient, daughter Onelia Holt is her MD POA Disposition. Anticipated discharge is 03/15, pending further workup as outlined above. Discussed patient's presentation with Dr. Juan C Orellana, he and I both agree the patient warrants additional workup and observation given her elevated troponin level and fall.
[2018-03-14 20:37] LABS: CREATINE KINASE 2443 IU/L (0-156)
[2018-03-14] MEDS: ASPIRIN 325 MG TAB PO SCH (20:45)
[2018-03-14] MEDS: oxyCODONE IR 5 MG TAB PO SCH (20:45)
[2018-03-14] MEDS: NS 1,000 ML IV SCH (22:51)
[2018-03-14] MEDS: [UNRECOGNIZED DRUG - OTHER] EACHEYE SCH (23:36)
[2018-03-15 04:35] LABS: PLATELET COUNT 212 10^3/uL (150-400)
[2018-03-15] MEDS: LEVOTHYROXINE 88 MCG TAB PO SCH (04:59)
[2018-03-15] MEDS: oxyCODONE IR 5 MG TAB PO SCH ×2 (04:59→16:06)
[2018-03-15] MEDS: NS 1,000 ML IV SCH (08:49)
[2018-03-15] MEDS ORDERED: Herbals/Supplements -Info Only PO SCH (09:00)
[2018-03-15] MEDS: ENOXAPARIN 40 MG/0.4 ML SYR SC SCH (09:48)
[2018-03-15] MEDS: ASPIRIN 325 MG TAB PO SCH (09:48)
[2018-03-15] MEDS: [UNRECOGNIZED DRUG - OTHER] EACHEYE SCH (09:49)
--- NOTE | 2018-03-15 12:08 | ASMTCMCOM ---
CM Note CM Note Notes: Pt recently discharged to home with stated 19/01 supervision by grandchildren but was left alone and had a fall and remained down for several hours. Family and pt now agreeing to placement in SNF until daughter Onelia Holt can quit her job in [place] and relocate to [place] to live with mother which she is doing Thursday evening. Daughter requested referrals be sent to facilities with skilled nursing care options. [facility] D/C Plan: SNF Date Signed: 03/15/2018 12:07 PM Electronically Signed By:Vanita Siegel
--- NOTE | 2018-03-15 13:16 | WOCRNPDOC ---
WOCRN Advanced Assessment Note - Skin Integrity Problem, Advanced Assess Right Hip Dressing Type: Allevyn Life Dressing Description: Clean/Dry, Intact Exudate Amount: Minimal Exudate Characteristic(s): Serosanguinous Integumentary Issue Intervention: Dressing Changed, Hydrogel Applied Kamille Wound Tissue: Blanching, Erythema, Painful/Tender Wound Bed Color: Red Wound Bed Constitution: Red/[place] - Non Granular Tissue Site Measurement - Head-to-Toe Length X Width X Depth (cm): 1.2x1.4x0.1 Skin Integrity Problem Comment: Patient has skin tear in center of large contustion, contusion measures approxiamtely [id number]. Patient had fallen out of bed and was down on rough carpeting for several hours yesterday 03/14/18. RN Allie in room as well as patient's granddaughter Sussy. Education provided to patient and granddaughter about offloading, monitoring the wound, and nutrition for healing. Wound care will round again next week. Left Hip Dressing Type: Open to Air Exudate Amount: None Integumentary Issue Intervention: Visualized Under Dressing Kamille Wound Tissue: Non-blanching Kamille Wound Swelling: Mild Skin Integrity Problem Comment: Patient has large contusion to hip, measuring approximately [id number]. Skin is intact. Skin is painful to the touch. Left Lateral Foot Abrasion Dressing Type: Open to Air Exudate Amount: Scant Exudate Color: Reddish/Yellow Exudate Characteristic(s): Dried, Serosanguinous Integumentary Issue Intervention: Dressing Applied Kamille Wound Tissue: Blanching Kamille Wound Swelling: Mild Wound Bed Constitution: Red/[place] - Non Granular Tissue Site Measurement - Head-to-Toe Length X Width X Depth (cm): 1.2x1x0.1 Skin Integrity Problem Comment: Patient has partial thickness abrasion to foot from fall yesterday. Patient has rough carpeting at home, and had shifted weight side to side in effort to get up, resulting in abrasion. Wound care will not follow. Please reconsult PRN.
--- NOTE | 2018-03-15 13:41 | HOSPPROG ---
Hospitalist Progress Note Assessment/Plan: 87-year-old female presents with acute fall, possible urinary tract infection Plan: # Fall. Per patient and grand-daughter present at bedside, this has been an increasing issue with recurrent falls recently, this was initially attributed to oxybutinin which was causing hallucinations and other cognitive issues. They wonder if she may have had a subacute CVA, discussed getting brain MRI however patient states undergoing MRI previously was the worst thing she had ever gone through, "worse than child " so will defer that. Patient with most recent fall spent the day on the ground as she could not get up and family and patient agree that SNF would be indicated at this point. CM involved # bacturia: patient with bacteria but otherwise relatively normal UA, given elevated wbc and question of AMS, being treated with CTX for now, will follow urine cultures but if no significant organisms found on urine culture will dc abx # elevated troponin: with mildly elevated but flat troponin without c/o chest pain and no ischemic changes on ECG, no further w/u indicated currently # HTN: continue home meds # LMWh # DNR--daughter Onelia MDPOA # IP status, will require > 48 hours stay, patient likely to transition to SNF after discharge Subjective: no acute overnight events, patient was able to walk with walker and PT Objective: Vital Signs Temp Pulse Resp BP Pulse Ox 36.4 C 73 17 136/56 H 91 L 03/15/18 09:15 03/15/18 09:15 03/15/18 09:15 03/15/18 09:15 03/15/18 09:15 Microbiology 03/14/18 22:42 Respiratory Panel (PCR) - Final Nasal, Sinus - Swab No Organism Detected Laboratory Results 03/15/18 03:14 03/15/18 03:14 03/14/18 03/15/18 03/16/18 05:59 05:59 05:59 Intake Total 800 Output Total 0 Balance 800 PT 12.7 SEC (12.0-15.0) 03/14/18 15:20 INR 0.93 (0.83-1.16) 03/14/18 15:20 awake alert elderly frail F anicteric op clear rrr no rg cta b soft nt nd no cce warm dry well perfused oriented appropriate ICD10 Worksheet Patient Problems: Problems Problem Status Onset Back pain Acute Elevated troponin Acute Fall Acute Transient cerebral ischemia Acute
--- NOTE | 2018-03-15 14:22 | PDMN ---
Medical Necessity Medical necessity: MCG M300 UTI, 87 y/o w/ bacturia, elevated WBC, urine cx pending, increasing issue w/ recurrent falls, increased troponin noted, telemetry monitoring. Switch to IP status 03/15/18 @1337 per MD order as pt will require >48 hr stay for ongoing monitoring and treatment, continued IV antibx for now, cont IVF, Per PT eval pt unsteady w/ transfers, fall risk, requires assist for all gait, activity tolerance is poor, gait is unsteady
[2018-03-15] MEDS ORDERED: LIDOCAINE 2% VISCOUS 15 ML UDCUP PO ONE (18:55)
[2018-03-15] MEDS ORDERED: MAG HYDROX/AL HYDROX/SIMETH 30 ML UDCUP PO ONE (18:55)
[2018-03-15] MEDS ORDERED: HYOSCYAMINE SULFATE 0.125 MG TAB PO ONE (18:55)
[2018-03-16] MEDS: oxyCODONE IR 5 MG TAB PO SCH ×2 (04:19→16:11)
[2018-03-16] MEDS: LEVOTHYROXINE 88 MCG TAB PO SCH (04:19)
[2018-03-16] MEDS ORDERED: ERGOCALCIFEROL 50,000 I.UNIT CAP PO SCH (08:00)
[2018-03-16] MEDS: ENOXAPARIN 40 MG/0.4 ML SYR SC SCH (08:27)
[2018-03-16] MEDS: ASPIRIN 325 MG TAB PO SCH (08:27)
[2018-03-16] MEDS: [UNRECOGNIZED DRUG - OTHER] EACHEYE SCH (10:29)
--- NOTE | 2018-03-16 11:00 | HOSPPROG ---
Hospitalist Progress Note Assessment/Plan: 87-year-old female presents with acute fall, possible urinary tract infection Plan: # Fall. Per patient and grand-daughter present at bedside, this has been an increasing issue with recurrent falls recently, this was initially attributed to oxybutinin which was causing hallucinations and other cognitive issues. They wonder if she may have had a subacute CVA, discussed getting brain MRI however patient states undergoing MRI previously was the worst thing she had ever gone through, "worse than child " so will defer that. Non focal neurologic exam , pt/ot recommending snf # e coli UTI: with more acute decline in cognitive function as well as leukocytosis with only mildly abnormal UA but >100K on urine culture will treat as infection--has gotten ctx x 2, will transition to levofloxacin in am given culture data # elevated troponin: with mildly elevated but flat troponin without c/o chest pain and no ischemic changes on ECG, no further w/u indicated currently # HTN: continue home meds # LMWh # DNR--daughter Onelia BA, granddaughter present at bedside # IP status, will require > 48 hours stay, patient likely to transition to SNF after discharge Further hx obtained from patients granddaughter present at bedside Subjective: no significant overnight events, patient notes feeling better, she is amenable to transfer to snf Objective: Vital Signs Temp Pulse Resp BP Pulse Ox 36.8 C 71 18 144/68 H 99 03/16/18 07:23 03/16/18 07:23 03/16/18 07:23 03/16/18 07:23 03/16/18 07:23 03/15/18 03/16/18 03/17/18 05:59 05:59 05:59 Intake Total 1850 Output Total 400 Balance 1450 PT 12.7 SEC (12.0-15.0) 03/14/18 15:20 INR 0.93 (0.83-1.16) 03/14/18 15:20 awake alert elderly frail F anicteric op clear rrr no rg cta b soft nt nd no cce warm dry well perfused oriented appropriate - Time Spent With Patient Time Spent with Patient: greater than 35 minutes Time Spent with Patient: Greater than 35 minutes spent on this patients care, greater than 50% of time spent counseling, educating, and coordinating care regarding the above mentioned plan. ICD10 Worksheet Patient Problems: Problems Problem Status Onset Back pain Acute Elevated troponin Acute Fall Acute Transient cerebral ischemia Acute
--- NOTE | 2018-03-16 11:09 | CPEKG ---
Test Reason : OPEN Blood Pressure : / mmHG Vent. Rate : 055 BPM Atrial Rate : 055 BPM P-R Int : 166 ms QRS Dur : 110 ms QT Int : 449 ms P-R-T Axes : 038 -14 009 degrees QTc Int : 430 ms Sinus rhythm Low voltage, precordial leads Minimal ST elevation, lateral leads Confirmed by Tony Guzman ([id number]) on 03/16/2018 11:09:42 AM Referred By: Confirmed By:Tony Guzman
[2018-03-16] MEDS: NAPROXEN SODIUM 220 MG TAB PO PRN (20:17)
[2018-03-16] MEDS ORDERED: diphenhydrAMINE 25 MG CAP PO ONE (22:58)
[2018-03-17] MEDS: oxyCODONE IR 5 MG TAB PO SCH ×2 (04:17→15:54)
[2018-03-17] MEDS: ASPIRIN 325 MG TAB PO SCH (09:54)
[2018-03-17] MEDS: ENOXAPARIN 40 MG/0.4 ML SYR SC SCH (09:54)
[2018-03-17] MEDS: [UNRECOGNIZED DRUG - OTHER] EACHEYE SCH ×2 (09:55→23:42)
--- NOTE | 2018-03-17 12:07 | HOSPPROG ---
Hospitalist Progress Note Assessment/Plan: 87-year-old female presents with acute fall, possible urinary tract infection Plan: # Fall. Per patient and grand-daughter present at bedside, this has been an increasing issue with recurrent falls recently, this was initially attributed to oxybutinin which was possibly contributing to hallucinations and other cognitive issues. They wonder if she may have had a subacute CVA, discussed getting brain MRI however patient states undergoing MRI previously was the worst thing she had ever gone through, "worse than child " so will defer that. Non focal neurologic exam, pt/ot recommending SNF and family amenable to that plan. # e coli UTI: with more acute decline in cognitive function as well as leukocytosis with only mildly abnormal UA but >100K on urine culture will treat as infection--has gotten ctx x 2, will complete 7 day course of abx for complicated uti with levofloxacin # delirium: overnight patient having what sounds like hallucinations and sundowning, better today. Daughter notes this has happened intermittently at home as well, will work on reorientation and minimizing sleep disruption, discussed with patient and grand daughter that this is not unexpected # elevated troponin: with mildly elevated but flat troponin without c/o chest pain and no ischemic changes on ECG, no further w/u indicated currently # HTN: continue home meds # LMWh # DNR--daughter Onelia BA, granddaughter present at bedside # IP status, will require > 48 hours stay, patient likely to transition to SNF after discharge Further hx obtained from patients granddaughter present at bedside Subjective: no significant overnight events, patient notes she was confused overnight--heard people working and bright lights in the hallway Objective: Vital Signs Temp Pulse Resp BP Pulse Ox 36.6 C 59 L 16 161/70 H 98 03/17/18 04:00 03/17/18 11:23 03/17/18 11:23 03/17/18 11:23 03/17/18 11:23 03/16/18 03/17/18 03/18/18 05:59 05:59 05:59 Intake Total 1850 1640 Output Total 400 1000 100 Balance 1450 640 -100 PT 12.7 SEC (12.0-15.0) 03/14/18 15:20 INR 0.93 (0.83-1.16) 03/14/18 15:20 awake alert elderly frail F anicteric op clear rrr no rg cta b soft nt nd no cce warm dry well perfused oriented appropriate ICD10 Worksheet Patient Problems: Problems Problem Status Onset Back pain Acute Elevated troponin Acute Fall Acute Transient cerebral ischemia Acute
--- NOTE | 2018-03-17 13:12 | ASMTCMCOM ---
CM Note CM Note Notes: Pts case discussed in tx rounds. Lashanda from [facility] met w/ pt and grand daughter Sussy. Sussy went to tour a couple SNFs yesterday. Sussy has decided to go w/ [facility]. Sussy will go over to [facility] today to pick out a room for pt. Updates sent. CM to follow. Plan: [facility] Date Signed: 03/17/2018 12:38 PM Electronically Signed By:LYLA Linton
--- NOTE | 2018-03-17 17:19 | WOCRNPDOC ---
SAW Advanced Assessment Note - Skin Integrity Problem, Advanced Assess Right Ischial Tuberosity Dressing Type: Allevyn Life Dressing Description: Clean/Dry, Intact Integumentary Issue Intervention: Dressing Removed Kamille Wound Tissue: Blanching, Erythema Wound Bed Constitution: Red/[place] - Non Granular Tissue Site Measurement - Head-to-Toe Length X Width X Depth (cm): 2.5x2.5x0.1 Skin Integrity Problem Comment: Partial thickness opening surrounded by blanching erythma likely friction injury. Likely not pressure related. Wound care will sign off. Right Elbow Dressing Type: Open to Air Site Measurement - Head-to-Toe Length X Width X Depth (cm): 2.4x1.8x0 Skin Integrity Problem Comment: Non blanching erythema/swelling from pulling herself around on the carpet. May be pressure related but its very difficult to tell as most of the other wounds the patient has are friction/contusion injuries. Right Lateral Foot Unknown Dressing Type: Allevyn Life Dressing Description: Clean/Dry, Intact Exudate Amount: Scant Exudate Characteristic(s): Serosanguinous Integumentary Issue Intervention: Visualized Under Dressing Kamille Wound Tissue: Blanching, Erythema Wound Bed Constitution: Red/[place] - Non Granular Tissue Skin Integrity Problem Comment: Partial thickness abrasions. No concerns. Wound care will sign off. Right Lateral Ankle Dressing Type: Allevyn Life Dressing Description: Clean/Dry, Intact Exudate Amount: None Integumentary Issue Intervention: Visualized Under Dressing Kamille Wound Tissue: Blanching, Erythema Wound Bed Constitution: Red/[place] - Non Granular Tissue Site Measurement - Head-to-Toe Length X Width X Depth (cm): 1x1x0.1 Skin Integrity Problem Comment: Likely friction not pressure related. Treat with moist wound healing/wound gel and allevyn life. Granddaughter and RN Tawanda in room. All questions answered. Wound care will sign off. Left Lateral Ankle Dressing Type: Allevyn Life Integumentary Issue Intervention: Visualized Under Dressing Kamille Wound Tissue: Blanching, Erythema Site Measurement - Head-to-Toe Length X Width X Depth (cm): 1x1x0.1 Skin Integrity Problem Comment: Likely friction rather than pressure related. No concerns. Wound care will sign off.
[2018-03-18] MEDS: oxyCODONE IR 5 MG TAB PO SCH ×2 (03:43→15:56)
[2018-03-18] MEDS ORDERED: hydrALAZINE 25 MG TAB PO PRN (04:52)
[2018-03-18] MEDS: ENOXAPARIN 40 MG/0.4 ML SYR SC SCH (09:08)
[2018-03-18] MEDS: ASPIRIN 325 MG TAB PO SCH (09:08)
[2018-03-18] MEDS: [UNRECOGNIZED DRUG - OTHER] EACHEYE SCH (09:10)
--- NOTE | 2018-03-18 13:38 | HOSPPROG ---
Hospitalist Progress Note Assessment/Plan: 87-year-old female presents with acute fall, possible urinary tract infection Plan: # Fall. Per patient and grand-daughter present at bedside, this has been an increasing issue with recurrent falls recently, this was initially attributed to oxybutinin which was possibly contributing to hallucinations and other cognitive issues. Working with pt/ot and will dc to snf likely in am. # e coli UTI: will complete 7 day course of abx with levofloxacin # delirium: overnight patient having what sounds like hallucinations and sundowning, this has been happening at home intermittently as well, largely at night. Will continue to work on reorientation. Patient notes that when it happens now she is aware that it is not real and so it doesn't upset her as much # elevated troponin: with mildly elevated but flat troponin without c/o chest pain and no ischemic changes on ECG, no further w/u indicated # HTN: continue home meds # LMWh # DNR--daughter Onelia BA, granddaughter present at bedside # IP status, will require > 48 hours stay, patient likely to transition to SNF after discharge Further hx obtained from patients daughter present at bedside Subjective: no significant overnight events, patient notes she is feeling fairly well today, she did have some hallucinations overnight Objective: Vital Signs Temp Pulse Resp BP Pulse Ox 36.7 C 63 23 H 168/73 H 96 03/18/18 12:18 03/18/18 12:18 03/18/18 12:18 03/18/18 12:18 03/18/18 12:18 03/17/18 03/18/18 03/19/18 05:59 05:59 05:59 Intake Total 1640 1240 Output Total 1000 1370 Balance 640 -130 PT 12.7 SEC (12.0-15.0) 03/14/18 15:20 INR 0.93 (0.83-1.16) 03/14/18 15:20 awake alert elderly frail F anicteric op clear rrr no rg cta b soft nt nd no cce warm dry well perfused oriented appropriate ICD10 Worksheet Patient Problems: Problems Problem Status Onset Back pain Acute Elevated troponin Acute Fall Acute Transient cerebral ischemia Acute
[2018-03-18] MEDS: ACETAMINOPHEN 325 MG TAB PO PRN (14:58)
[2018-03-18] MEDS: NAPROXEN SODIUM 220 MG TAB PO PRN (23:18)
[2018-03-19] MEDS: ACETAMINOPHEN 325 MG TAB PO PRN (02:24)
[2018-03-19] MEDS: oxyCODONE IR 5 MG TAB PO SCH (03:02)
[2018-03-19] MEDS ORDERED: LEVOTHYROXINE 75 MCG TAB PO SCH (06:00)
[2018-03-19 07:06] VITALS: BP 183/84
[2018-03-19] MEDS: ENOXAPARIN 40 MG/0.4 ML SYR SC SCH (09:20)
[2018-03-19] MEDS: ASPIRIN 325 MG TAB PO SCH (09:20)
[2018-03-19] MEDS: [UNRECOGNIZED DRUG - OTHER] EACHEYE SCH (09:21)
--- NOTE | 2018-03-19 10:29 | PDIAF ---
- Diagnosis Diagnosis: Falls, UTI Code Status: Do Not Resuscitate - Medication Management Discharge Medications: Medications to Continue on Transfer Ergocalciferol [Vitamin D2 (*)] 50,000 unit PO TU@0800 10/14/16 [Last Taken 05/16] Herbals/Supplements -Info Only 1 ea PO DAILY 10/14/16 [Last Taken Unknown] Naproxen Sodium [Aleve 220 MG (*)] 220 mg PO DAILY PRN 10/14/16 [Last Taken ] oxyCODONE IR [Oxycodone Ir (*)] 5 mg PO BID 10/14/16 [Last Taken 03/13/18] Aspirin [Aspirin 325 mg (*)] 325 mg PO DAILY #0 tab 10/15/16 [Last Taken ] Homeopathic Eye Drops 1 drop EACHEYE DAILY 03/14/18 [Last Taken 03/13/18] Cephalexin [Keflex (*)] 500 mg PO TID #9 cap 03/19/18 [Last Taken Unknown] Levothyroxine [Synthroid 75 mcg (*)] 75 mcg PO DAILY AT 6AM #0 tab 03/19/18 [ Last Taken Unknown] amLODIPine BESYLATE [Norvasc 2.5 mg (*)] 2.5 mg PO DAILY #30 tab 03/19/18 [Last Taken Unknown] Half-Way Antibiotics: keflex 500mg PO TID; start 03/21, continue for three days total Discharge Medications: Refer to the Discharge Home Medication list for PRN reason. - Orders Services needed: Registered Nurse, Certified Life Science Teacher, Physical Therapy, Occupational Therapy Diet Recommendation: no restrictions on diet Additional Instructions: Wound care: Change dressings to right ischial tuberosity, right and left lateral ankle/feet every 3 days and prn. 1. Clean with ns and gauze 2. Wound gel to wound bed 3. Cover with Allevyn Life or other foam border dressings OR (for foot/ankle wounds only) cut mepilex 4x4 (or other non border foam dressing) to cover wounds on feet/ankles and secure with medipore tape. Hazel Liu CWON - Follow Up Care Current Providers and Referrals: Patient,NotPresent [Unknown] - As per Instructions
--- NOTE | 2018-03-19 10:45 | ASMTLACE ---
LACE Length of stay for Answers: 3 days current admission Acuity / Level of Answers: Yes Care: Did the patient have an inpatient admission? Comorbidities - select Answers: Cerebrovascular disease all that apply (CVA, TIA, aneurysms, vasc ular dementia) History of falls Opioid dependence / Chronic pain Other Notes: HTN; Hypothyroid # of Emergency department Answers: 1-2 visits in the last 6 months Score: 16 Date Signed: 03/19/2018 10:44 AM Electronically Signed By:Daylin Ribeiro RN
--- NOTE | 2018-03-19 10:49 | ASMTDCNOTE ---
Case Management Discharge Discharge Order Complete? Answers: Yes Patient to Obtain Answers: Other Notes: [facility] Medications Transportation Arranged Answers: Other Notes: Wheelchair transport arranged by [facility] Transport will Pick (Date 03/19/2018 12:00 AM & Time) Faxed Final Orders Answers: Yes Agency/Facility Transfer Answers: Yes Report Printed & Faxed to Receiving Agency Family Notified Answers: Yes Notes: in room Discharge Comments Notes: 03/19/2018 Case Management Note Faxed final orders to [facility]. RN called report. [facility] arranged transport for 12:30 picker and sorter load and unload. Date Signed: 03/19/2018 10:48 AM Electronically Signed By:Daylin Ribeiro RN
--- NOTE | 2018-03-19 10:50 | ASDISCHSUM ---
Discharge Information Plan Status:SNF Medically Cleared to Leave:03/19/2018 Discharge Date:03/19/2018 CM D/C Disposition:[facility] Facility ADT D/C Disposition:[facility] Facility Projected Discharge Date:03/19/2018 11:00 AM Transportation at D/C:Wheelchair Van Discharge Delay Reason: Follow-Up Date:03/19/2018 11:00 AM Discharge Slot: Final Diagnosis: Placement Information Referral Type:*Assisted/SNF Referral ID:[id number] Provider Name:[facility] Address 1:[address] Address 2: [facility]:[place] Selection Factors: State:[place] Patient Contact Information Contact Name:FATMATA Relationship:Son Address: Work Phone: [facility]:[place] Alternate Phone: [facility]/Zip Code:[place] Email: Financial Information Financial Class:Medicare Primary Plan Desc:MEDICARE INPATIENT Primary Plan Number:[id number] [facility] Secondary Plan Number:[id number] Assessment Information LACE LACE Length of stay for Answers: 3 days current admission Acuity / Level of Answers: Yes Care: Did the patient have an inpatient admission? Comorbidities - select Answers: Cerebrovascular disease all that apply (CVA, TIA, aneurysms, vasc ular dementia) History of falls Opioid dependence / Chronic pain Other Notes: HTN; Hypothyroid # of Emergency department Answers: 1-2 visits in the last 6 months Score: 16 Date Signed: 03/19/2018 10:44 AM Electronically Signed By:Daylin Ribeiro RN [facility] CM Progress Note CM Note CM Note Notes: Pt recently discharged to home with stated 19/01 supervision by grandchildren but was left alone and had a fall and remained down for several hours. Family and pt now agreeing to placement in SNF until daughter Onelia Holt can quit her job in [place] and relocate to [place] to live with mother which she is doing Thursday evening. Daughter requested referrals be sent to facilities with petroleum terminal plant operator care options. Referrals sent to [facility], [facility] and [facility]. D/C Plan: SNF Date Signed: 03/15/2018 12:07 PM Electronically Signed By:Vanita Siegel [facility] CM Progress Note CM Note CM Note Notes: Pts case discussed in tx rounds. Lashanda from [facility] met w/ pt and grand daughter Sussy. Sussy went to tour a couple SNFs yesterday. Sussy has decided to go w/ [facility]. Sussy will go over to [facility] today to pick out a room for pt. Updates sent. CM to follow. Plan: [facility] Date Signed: 03/17/2018 12:38 PM Electronically Signed By:LYLA Linton Case Management Discharge Plan Note Case Management Discharge Discharge Order Complete? Answers: Yes Patient to Obtain Answers: Other Notes: [facility] Medications Transportation Arranged Answers: Other Notes: Wheelchair transport arranged by [facility] Transport will Pick (Date 03/19/2018 12:00 AM & Time) Faxed Final Orders Answers: Yes Agency/Facility Transfer Answers: Yes Report Printed & Faxed to Receiving Agency Family Notified Answers: Yes Notes: in room Discharge Comments Notes: 03/19/2018 Case Management Note Faxed final orders to [facility]. RN called report. [facility] arranged transport for 12:30 citrus picker. Date Signed: 03/19/2018 10:48 AM Electronically Signed By:Daylin Ribeiro RN Intervention Information Intervention Type:*PETERSON-Signed Date of Service:03/15/2018 12:32 PM Patient Type:Observation Staff Member:Ara Haile Hours: Discipline: Severity: Comment:
--- NOTE | 2018-03-19 11:32 | GDS ---
DIAGNOSES: 1. Fall. 2. E coli urinary tract infection. 3. Delirium, suspect hospital associated. 4. Elevated troponin. 5. Hypertension. HOSPITAL COURSE: 87-year-old female who was living at [facility], presents after a fall. Likely mu ltifactorial. She was found to have an E coli urinary tract infection, this is being treated. She h as been working with Physical Therapy, who recommend intermediate facility. She will be discharge d to [facility] today. Other notable findings include a suppressed TSH at 0.022 with an elevated vickie e T4 at 2.59. I have decreased her Synthroid from 88 mcg daily down to 75 mcg daily. TSH should be rechecked again about 6 weeks. Troponins have been indeterminate at around 0.1. These are relativel y flat. She has no chest pain, no EKG changes. No further workup has been taken given her age. She is medically managed with aspirin at this time. She has been hypertensive since being here, I have started her on low-dose amlodipine at 2.5 mg. Her blood pressure should be followed and this may nee d to be up-titrated sooner rather than later. For UTI, she will be treated with an additional 3 days of Keflex. She had been receiving Levaquin he re, which I have discontinued given the concern for her delirium. She should start Keflex on 03/21 a nd continue this for 3 days. FOLLOWUP: 1. Follow up with PCP in 6 weeks for a recheck of her TSH. 2. Follow her blood pressure closely after restarting amlodipine. BILLING: I spent more than 30 minutes on the day of discharge coordinating care. DISPOSITION: She is discharged to [facility] in stable condition. /[id number]/MODL
--- NOTE | 2018-03-19 21:07 | CPEKG ---
Test Reason : OPEN Blood Pressure : / mmHG Vent. Rate : 079 BPM Atrial Rate : 079 BPM P-R Int : 179 ms QRS Dur : 108 ms QT Int : 408 ms P-R-T Axes : 053 -06 000 degrees QTc Int : 468 ms Sinus rhythm Ventricular premature complex Confirmed by Juan C Orellana ([id number]) on 03/19/2018 9:07:19 PM Referred By: Confirmed By:Juan C Orellana
--- NOTE | 2018-03-19 21:08 | CPEKG ---
Test Reason : OPEN Blood Pressure : / mmHG Vent. Rate : 073 BPM Atrial Rate : 071 BPM P-R Int : 175 ms QRS Dur : 112 ms QT Int : 423 ms P-R-T Axes : 022 004 018 degrees QTc Int : 467 ms Sinus rhythm Multiple ventricular premature complexes Confirmed by Juan C Orellana ([id number]) on 03/19/2018 9:07:54 PM Referred By: Confirmed By:Juan C Orellana
== END 2018-03-19 13:03 | DRG 690 ==
LOC: EDUNIT# → F2W 21:11 → OBSVTOIN 03-15 13:37
PROVIDERS: ADMIT Internal Medicine; ATTEND Student in an Organized Health Care Education/Training Program
DX: N39.0 Urinary tract infection, site not specified (principal); B96.20 Unspecified Escherichia coli [E. coli] as the cause of diseases classified elsewhere; R41.0 Disorientation, unspecified; G89.29 Other chronic pain; M54.5 Low back pain; F11.20 Opioid dependence, uncomplicated; I24.8 Other forms of acute ischemic heart disease; E03.9 Hypothyroidism, unspecified; I27.20 Pulmonary hypertension, unspecified; I10 Essential (primary) hypertension; R78.89 Finding of other specified substances, not normally found in blood; Z86.73 Personal history of transient ischemic attack (TIA), and cerebral infarction without residual deficits; Z66 Do not resuscitate; Z79.82 Long term (current) use of aspirin
CPT/HCPCS: 84484-PO; 92507-GN; 92523-GN; 97116-GP; 97162-GP; 97165-GO; 97530-GO; 97530-GP; 97535-GO; G0378; G0390; G8978-GP-CK; G8979-GP-CI; G8987-GO-CL; G8988-GO-CI; G9168-GN-CJ; G9169-GN-CK; G9170-GN-CI; J0696; J1650